=== PATIENT | female | born 1970 | race African-American/Black ===

== ENCOUNTER 2016-12-15 10:44 | Emergency (ER) | payer SELFPAY ==
[2016-12-15 10:55] VITALS: BP 140/98
[2016-12-15] MEDS ORDERED: predniSONE 20 MG TABLET PO ONE (11:14)
[2016-12-15] MEDS ORDERED: predniSONE 20 MG TABLET ONE (11:16)
--- NOTE | 2016-12-15 11:18 | ERNOTE ---
Allergy Symptoms - ER Date of Service: 12/15/16 Presenting Symptoms: itching Time Seen by Provider: 12/15/16 10:58 Source: patient, RN notes reviewed Exam Limitations: no limitations Immunizations: IMMUNIZATION HX Immunizations Up to Date Yes History of Influenza Vaccine Yes Hx Pneumococcal Vaccination Yes Allergies/Adverse Reactions: Allergies No Known Allergies Allergy (Unverified 12/15/16 10:55) Home Medications: HOME MEDICATIONS predniSONE [Prednisone] 2 tab PO DAILY #8 tab 12/15/16 [Last Taken Unknown] - History of Present Illness Narrative: 46 y/o female with itching and swelling to her upper lip that began 2 days ago. This has happened to her several times in the past. No cause has been identified. She has been using a topical steroid and taking antihistamines without improvement. The condition has responded to prednisone in the past. She denies any exposures to new foods or hygiene products. She also denies any swelling in her throat or tongue, or any respiratory difficulty. Date (Duration): 12/13/16 Treatment HANDS ASSEMBLER:: by patient Location skin rash/itching: Present: facial Location swelling: Present: lip(s) Identified cause?: No Exposure: Absent: antibiotic, aspirin, NSAID, RUTHY inhibitor, shellfish, nuts, soybeans, eggs, other food, bee/wasp sting, poison toño/oak, infectious illness Modifying Factors (Improves): Reports: scratching. Denies: topical cream/ ointment Modifying Factors (Worsens): Reports: nothing Similar symptoms previously: Yes Prior Treament: Denies: recently seen Review of Systems - Review of Systems Constitutional: Absent: recent illness, fever, chills, malaise EYE: Absent: eye discharge, tearing ENT: Absent: nose congestion, nasal drainage, sore throat, throat swelling Respiratory: Absent: shortness of breath, cough, wheezing, stridor Cardiology: Present: no symptoms reported Gastrointestinal/Abdominal: Absent: nausea, abdominal pain Genitourinary: Present: no symptoms reported Musculoskeletal: Absent: muscle pain, neck pain Skin: Absent: rash, lesions Neurological: Absent: headache, dizziness/light-headedness Endocrine: Present: no symptoms reported Hematologic/Lymphatic: Present: no symptoms reported Psych: Present: no symptoms reported - Patient's Past Medical History Patient History - Medical: No pertinent hx Patient History - Cardiac/Respiratory: No pertinent hx Patient History - Cancer: No Hx of Cancer Patient History - Surgical Procedures: Cholecystectomy, Hysterectomy, Other Patient History - Other: None LMP (females 10-50): years ago. - Social History Living Situations: home Psych History: No pertinent hx Smoking Status: Never smoker Alcohol Use: none Drug Use: none - Immunizations Immunizations Up to Date: Yes Hx Pneumococcal Vaccination: Yes History of Influenza Vaccine: Yes Physical Exam - Physical Exam General Appearance: Present: wd/wn, alert, no apparent distress Head Exam: Present: normal inspection Eye Exam: Normal inspection: bilateral Ears, Nose, Throat: Present: normal pharynx, other - mild edema to upper lip. Absent: abnormal TM (R), abnormal TM (L), nasal congestion, pharyngeal erythema , pharyngeal swelling Neck: Present: normal inspection, nontender, supple, full range of motion Respiratory: Present: no respiratory distress, normal breath sounds, no accessory muscle use, lungs clear Cardiovascular/Chest: Present: regular rate, rhythm, no murmur Extremity Exam: Present: normal inspection, no edema Neurological Exam: Present: alert, oriented, normal mood/affect, no motor/ sensory deficits Skin Exam: Present: normal color, warm/dry ED Progress - Vital Signs Patient's Vital Signs:: I have reviewed the patient's vital signs. Vital Signs: Vital Signs 12/15/16 10:46 Temperature 36.6 C Pulse Rate 71 Respiratory 16 Rate Blood Pressure 140/98 O2 Sat by Pulse 99 Oximetry - Progress/Reassessment Chief Complaint: Allergic Reaction Progress:: Unchanged Departure Clinical Impression: Allergic contact dermatitis Qualifiers: Contact dermatitis trigger: unspecified trigger Qualified Code(s): L23.9 - Allergic contact dermatitis, unspecified cause - Departure Disposition: Home Follow Up Needed Condition: Good Instructions: Contact Dermatitis Additional Instructions: Take prednisone in the mornings with food Zyrtec may help with itching and not cause as much drowsiness - take once a day at bedtime Consider trying Cetaphil cleanser Follow up with dermatology if symptoms persist Prescriptions: predniSONE [Prednisone] 2 tab PO DAILY #8 tab
== END 2016-12-15 11:23 | disposition home or self-care (01) ==
LOC: ER 10:44
DX: L23.9 Allergic contact dermatitis, unspecified cause (principal)